=== PATIENT | male | born 1955 | race Caucasian/White ===

== ENCOUNTER → 2020-05-27 | Outpatient (CLI) | payer OTHER ==
[~2020-05-27] MED LIST: LEVOTHYROXINE150 MC1 PO; PLAVIX 75 MG TA75 MG PO; SIMVASTATIN40 MG PO
== END ==
LOC: M.LAB 15:53
PROVIDERS: ATTEND Orthopaedic Surgery
DX: Z01.812 Encounter for preprocedural laboratory examination (principal); Z20.822 Contact with and (suspected) exposure to COVID-19

== ENCOUNTER → 2020-05-30 | Day surgery (SDC) | payer OTHER ==
--- NOTE | ~2020-05-30 | OP ---
[address] [address] OPERATIVE REPORT Name: VIRIDIANA TURCIOS Room: [facility]..#: [id number] Admission: 05/30/20 Attend Phys: Luis Carlos Willett II Discharge: Date of : 57 Report #: [id number] THIS REPORT FOR: cc: Avni Miller MD, Michael S. MD ~ Luis Carlos Willett II, DO DATE OF SERVICE: 05/30/2020 PREOPERATIVE DIAGNOSIS: Left knee medial meniscus tear. POSTOPERATIVE DIAGNOSES: 1. Left knee medial meniscus tear. 2. Grade 3 chondromalacia, medial femoral condyle. PROCEDURES PERFORMED: 1. Left knee arthroscopic surgery with partial medial meniscectomy. 2. Abrasion chondroplasty of medial femoral condyle down to bleeding bone. SURGEON: Luis Carlos Willett II, DO CLOTH SHRINKING SUPERVISOR: HARRISON Feliciano ANESTHESIA: Per operative record. ESTIMATED BLOOD LOSS: Minimal. ANTIBIOTICS: Per operative record. DRAINS: None. COMPLICATIONS: None. CONDITION OF THE PATIENT: Stable to recovery room. DESCRIPTION OF PROCEDURE: The patient was taken to the operative suite and placed supine on the operating table, given appropriate anesthesia. The patient's affected lower extremity sterilely prepped and draped with well-padded knee arthroscopic escamilla. Surgery began by medial and lateral portal incisions. The arthroscope was advanced in the joint. There was shown to be grade 3 chondromalacia to the medial femoral condyle. Utilizing a shaver, an abrasion chondroplasty was performed down to bleeding bone and then smoothed using Coblation wand. There was shown to be a medial meniscus tear to the medial margin extending around to the posterior horn. Utilizing a shaver, a partial meniscectomy was performed and baskets were utilized to resect the torn flap and the medial meniscus was smoothed with Coblation wand [place] [address] OPERATIVE REPORT Name: VIRIDIANA TURCIOS Room: [facility]#: [id number] Admission: 05/30/20 Attend Phys: Luis Carlos Willett II Discharge: Date of : 57 Report #: [id number] Lateral meniscus was probed and shown to be intact. ACL and PCL were intact. Final irrigation was performed. The knee was drained of arthroscopic fluid, closed with 4-0 nylon in simple fashion. Dermabond and sterile dressing applied. The patient transported to recovery room in stable condition. Counts were correct throughout the procedure. By: [id number] Carlos Willett II, DO /nt
[2020-05-30 12:33] LABS: HEMATOCRIT 46.1 % (42.0-52.0); HEMOGLOBIN 15.3 gm/dL (14.0-18.0); MCH 31.4 pg (26.0-34.0); MCHC 33.1 g/dL (28.0-37.0); MCV 94.8 fL (80.0-100.0); MPV 7.4 fl. (7.2-11.1); RBC 4.87 mil/uL (4.50-6.00); RDW-CV 14.5 % (10.5-14.5); WBC 7.4 thou/uL (4.0-11.0)
[2020-05-30 12:37] LABS: CALCIUM 8.6 mg/dL (8.5-10.1); POTASSIUM 3.6 mmol/L (3.5-5.1)
--- NOTE | 2020-05-30 15:12 | EKG ---
[place] [address] ELECTROCARDIOGRAM REPORT Name: VIRIDIANA TURCIOS Room: [facility] [employer] [facility]#: [id number] Admission: 05/30/20 Attend Phys: Luis Carlos Willett, Discharge: Date of : 57 Date of Service: 05/30/207 Report #: [id number] THIS REPORT FOR: //name// [facility] Test Date: 2020-05-30 Test Time: 12:27:11 Pat Name: VIRIDIANA TURCIOS Department: Room: Gender: Electrical Instrumentation Technician: : [id number] Requested By: Luis Carlos Willett Order Number: [id number] Vitaliy MD: Avni Roman Measurements Intervals [place] Rate: 64 P: 23 AL: 168 QRS: 4 QRSD: 109 T: 30 QT: 420 QTc: 434 Interpretive Statements Sinus rhythm No previous ECG available for comparison Electronically Signed On 05-30-2020 15:12:10 CDT by Avni Roman [email or web address] <ELECTRONICALLY SIGNED> By: Avni Roman MD, [facility] 05/30/20 1512 1227 1227 Avni Roman MD, FACC /EPI
== END | disposition home or self-care (01) ==
LOC: M.SUR
PROVIDERS: ATTEND Orthopaedic Surgery
DX: S83.242A Other tear of medial meniscus, current injury, left knee, initial encounter (principal); M94.262 Chondromalacia, left knee; M25.462 Effusion, left knee; E78.00 Pure hypercholesterolemia, unspecified; Z98.890 Other specified postprocedural states; Z79.899 Other long term (current) drug therapy; Z86.73 Personal history of transient ischemic attack (TIA), and cerebral infarction without residual deficits; X58.XXXA Exposure to other specified factors, initial encounter; Y93.89 Activity, other specified; Y92.89 Other specified places as the place of occurrence of the external cause; Y99.8 Other external cause status